=== PATIENT | female | born 1950 | race Two or more races ===

== ENCOUNTER 2020-03-29 07:57 | Emergency (ER) | payer MEDICARE, OTHER ==
[2020-03-29 10:11] LABS: ABSOLUTE EOSINOPHILS # (AUTO) 0.2 10^3/uL (0.0-0.6); ABSOLUTE LYMPHOCYTES (AUTO) 1.5 10^3/uL (0.5-4.7); ABSOLUTE MONOCYTES (AUTO) 0.5 10^3/uL (0.1-1.4); ABSOLUTE NEUT (AUTO) 4.3 10^3/uL (1.7-8.2); BASOPHILS % (AUTO) 0.7 % (0-2); EOSINOPHILS % (AUTO) 2.4 % (0-6); HEMATOCRIT 42.8 % (36.0-47.0); HEMOGLOBIN 14.7 g/dL (12.0-15.5); LYMPHOCYTES % (AUTO) 23.7 % (13-45); MEAN CORPUSCULAR HEMOGLOBIN 32.5 pg (27.0-33.4); MEAN CORPUSCULAR HGB CONC 34.4 g/dL (32.0-36.0); MEAN CORPUSCULAR VOLUME 94 fl (80-97); MONOCYTES % (AUTO) 7.5 % (3-13); PLATELET COUNT 224 10^3/uL (150-450); RED BLOOD COUNT 4.53 10^6/uL (3.72-5.28); RED CELL DISTRIBUTION WIDTH 12.6 % (11.5-14.0); SEGMENTED NEUTROPHILS % (AUTO) 65.7 % (42-78); TOTAL CELLS COUNTED % (AUTO) 100 %; WHITE BLOOD COUNT 6.5 10^3/uL (4.0-10.5)
[2020-03-29 10:23] LABS: APPEARANCE,URINE SLIGHTLY-CLOUDY; BILIRUBIN,URINE NEGATIVE (NEGATIVE); COLOR,URINE YELLOW; GLUCOSE, URINE NEGATIVE (NEGATIVE); KETONES,URINE NEGATIVE (NEGATIVE); LEUKOCYTE ESTERASE,URINE MODERATE (NEGATIVE); NITRITE,URINE NEGATIVE (NEGATIVE); PROTEIN,URINE NEGATIVE (NEGATIVE); URINE SPECIFIC GRAVITY 1.024; UROBILINOGEN,URINE NEGATIVE mg/dL (<2.0)
--- NOTE | 2020-03-29 10:23 | RADIOLOGY REPORT (SQ) ---
EXAM DESCRIPTION: CT HEAD WITHOUT IMAGES COMPLETED DATE/TIME: 03/29/2020 10:11 am REASON FOR STUDY: right sided headache/dizziness/vertigo COMPARISON: None. TECHNIQUE: Axial images acquired through the brain without intravenous contrast. Images reviewed wi th bone, brain and subdural windows. Additional sagittal and coronal reconstructions were generated. Images stored on PACS. All CT scanners at this facility use dose modulation, iterative reconstruction, and/or weight based d osing when appropriate to reduce radiation dose to as low as reasonably achievable (ALARA). [facility]: Dose Right [facility]: CareDose [facility]: Dose Right [facility]: Teradose 4D [facility]: sabio labs RADIATION DOSE: CT Rad equipment meets quality standard of care and radiation dose reduction techniq ues were employed. CTDIvol: 53.2 mGy. DLP: 911 mGy-cm. LIMITATIONS: None. FINDINGS: There is no acute intracranial hemorrhage, vascular territorial infarct, extra-axial fluid collection, mass effect or midline shift. The heredia-white matter differentiation is preserved. The caliber of the ventricles is concordant with the degree of sulcation. There is no effacement of the cerebral sulci or basal subarachnoid cisterns. The orbits and globes are intact. The paranasal sinuses are clear. There is no fracture of the calv arium. IMPRESSION: No acute intracranial abnormality. EVIDENCE OF ACUTE STROKE: NO. COMMENT: Quality ID # [id number]: Final reports with documentation of one or more dose reduction techniques (e.g., Automated exposure control, adjustment of the mA and/or kV according to patient size, use of iterative reconstruction technique) TECHNICAL DOCUMENTATION: JOB ID: [id number] 2010 [employer]- All Rights Reserved Reading location - IP/workstation name: [facility]-
[2020-03-29 10:38] LABS: INTERNATIONAL RATION (INR) 0.85; PROTHROMBIN TIME 11.8 SEC (11.4-15.4)
[2020-03-29 10:39] LABS: PARTIAL THROMBOPLASTIN TIME 26.9 SEC (23.5-35.8)
[2020-03-29 10:40] LABS: ALBUMIN 4.1 g/dL (3.5-5.0); ALKALINE PHOSPHATASE 64 U/L (38-126); ANION GAP 8 (5-19); ASPARTATE AMINO TRANSFERASE 23 U/L (14-36); BILIRUBIN,DIRECT 0.2 mg/dL (0.0-0.4); BILIRUBIN,TOTAL 0.5 mg/dL (0.2-1.3); BLOOD UREA NITROGEN 17 mg/dL (7-20); CALCIUM 9.4 mg/dL (8.4-10.2); CARBON DIOXIDE 24 mmol/L (22-30); CHLORIDE 107 mmol/L (98-107); CREATINE KINASE 76 U/L (30-135); GLUCOSE 146 mg/dL (75-110); POTASSIUM 4.8 mmol/L (3.6-5.0); TOTAL PROTEIN 6.7 g/dL (6.3-8.2)
[2020-03-29 10:51] LABS: CREATINE KINASE MB 1.76 ng/mL (<4.55)
[2020-03-29 10:53] LABS: TROPONIN I < 0.012 ng/mL
[2020-03-29] MEDS ORDERED: KETOROLAC TROMETHAMINE INJ/PF 30 MG/1 ML SDV IV ONE (11:03)
[2020-03-29] MEDS ORDERED: METOCLOPRAMIDE HCL INJ/PF 10 MG/2 ML SDV IV ONE (11:04)
[2020-03-29] MEDS ORDERED: MECLIZINE HCL 25 MG TABLET PO ONE (11:04)
--- NOTE | 2020-03-29 13:30 | ER Document Report ---
Entered by MARIANA MILLER SCRIBE 03/29/20 0956 Acting as scribe for:AISSATOU PERSON MD ED General - General Chief Complaint: Dizziness Stated Complaint: LIGHTHEADED,FACIAL NUMBNESS,NAUSEA Time Seen by Provider: 03/29/20 09:49 Information source: Patient Notes: This 70 year old female patient presents to the emergency department today with dizziness that began this morning after waking up, around 7 am. Patient states she was fine last night and reports some facial numbness over her right eye. Patient states she is able to ambulate by herself and reports some ear pain. - Related Data Allergies/Adverse Reactions: codeine Allergy (Verified 03/29/20 08:11) oxycodone [From Percocet] Allergy (Verified 03/29/20 08:11) propoxyphene [From Darvocet-N] Allergy (Verified 03/29/20 09:58) Past Medical History - General Information source: Patient - Social History Smoking Status: Never Smoker Cigarette use (# per day): No Lives with: Family Family History: Reviewed & Not Pertinent - Past Medical History Cardiac Medical History: Reports: Hx Hypercholesterolemia, Hx Hypertension Past Surgical History: Reports: Hx Tubal Ligation Review of Systems - Review of Systems Constitutional: No symptoms reported EENT: See HPI, Eye pain Cardiovascular: See HPI, Dizziness Respiratory: No symptoms reported Gastrointestinal: No symptoms reported Genitourinary: No symptoms reported Female Genitourinary: No symptoms reported Musculoskeletal: No symptoms reported Skin: No symptoms reported Hematologic/Lymphatic: No symptoms reported Neurological/Psychological: See HPI, Numbness - R facial -: Yes All other systems reviewed and negative Physical Exam - Vital signs Vitals: Temp Pulse Resp BP Pulse Ox 97.6 F 58 L 18 173/100 H 98 03/29/20 08:04 03/29/20 08:04 03/29/20 08:04 03/29/20 08:04 03/29/20 08:04 - General General appearance: Appears well, Alert - HEENT Head: Normocephalic, Atraumatic Eyes: Normal Extraocular movements intact: Yes Pupils: PERRL Ears: Normal External canal: Normal Tympanic membrane: Serous effusion - bilateral Mucous membranes: Normal Notes: Tenderness with palpation to the right frontal sinus. - Respiratory Respiratory status: No respiratory distress Chest status: Nontender Breath sounds: Normal Chest palpation: Normal - Cardiovascular Rhythm: Regular Heart sounds: Normal auscultation Murmur: No - Abdominal Inspection: Normal Distension: No distension Bowel sounds: Normal Tenderness: Nontender - Extremities General upper extremity: Normal inspection, Normal ROM. No: Edema General lower extremity: Normal inspection, Normal ROM. 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 No pronator drift. Normal strength and coordination of all four extremities. - Psychological Associated symptoms: Normal affect, Normal mood - Skin Skin Temperature: Warm Skin Moisture: Dry Skin Color: Normal Course - Re-evaluation Re-evalutation: 03/29/20 13:20 Patient resting comfortably not showing any signs of distress states that her dizziness vertigo headache is all improved. Also nausea is improved. Patient denies any chest pain. - Vital Signs Vital signs: Temp Pulse Resp BP Pulse Ox 97.6 F 57 L 14 171/87 H 99 03/29/20 08:04 03/29/20 09:52 03/29/20 09:52 03/29/20 09:52 03/29/20 09:52 03/29/20 13:20 Vital signs show systolic hypertension at 952 this a.m. Patient's blood pressure now is 140/80. - Laboratory Result Diagrams: 03/29/20 09:45 03/29/20 09:45 Laboratory results interpreted by me: 03/29/20 03/29/20 09:40 09:45 Glucose 146 H Ur Leukocyte Esterase MODERATE H Laboratories show blood sugar 146 and urine shows leukocyte esterase positive moderate. Patient denies any urinary symptoms we will culture urine to determine if patient does have a urinary tract infection that is subclinical to to her at this time. - Diagnostic Test Radiology reviewed: Image reviewed, Reports reviewed Radiology results interpreted by me: 03/29/20 13:[address] 03/29/20 09:55 IMPRESSION: No acute intracranial abnormality. EVIDENCE OF ACUTE STROKE: NO. CT scan of head shows no evidence of stroke. - EKG Interpretation by Me Additional EKG results interpreted by me: 03/29/20 13:23 Twelve-lead EKG shows normal sinus rhythm rate of [address]-T wave changes. No evidence for DC. QT QRS and NM intervals all within normal range normal axis. T wave inversion in lead III only. Discharge - Discharge Clinical Impression: Labyrinthitis of both ears, Nausea, Tenderness over frontal sinus Condition: Stable Disposition: HOME, SELF-CARE Instructions: Labyrinthitis ([facility]), Dizziness ([facility]), Meclizine ([facility]) Additional Instructions: Labyrinthitis Labyrinthitis is a temporary disease of the inner ear. It's sometimes called vestibulitis. It often starts a few days after a cold or virus infecti on. Symptoms include vertigo (the spinning type of dizziness) or a sense of unsteadiness and nausea. The symptoms usually go away in a couple of days without any treatment. You should rest and keep your head still. The dizziness is worse if you move your head. Closing the eyes usually helps. Don't drive, work with dangerous machinery, or get up on ladders or scaffolds until a few days after the dizziness resolves. Medicine such as meclizine (Antivert, Bonine) can reduce the dizziness and nausea. Tranquilizers (such as diazepam) can suppress your sense of balance, reducing the unpleasantness of the vertigo. Call or return if you develop ear pain, loss of hearing, fever, severe vomiting, or any other new symptom. Recommend Tylenol or Advil Cold and Sinus as needed for sinus headache pain. Prescriptions: Meclizine HCl [Antivert 25 mg Tablet] 25 mg PO TID PRN #21 tablet PRN Reason: Ondansetron [Zofran Odt 4 mg Tablet] 1 - 2 tab PO Q4H PRN #15 tab.rapdis PRN Reason: For Nausea/Vomiting I personally performed the services described in the documentation, reviewed and edited the documentation which was dictated to the scribe in my presence, and it accurately records my words and actions.
[2020-03-29 14:14] VITALS: BP 130/80
--- NOTE | 2020-03-29 21:04 | EKG REPORT ---
SEVERITY:- NORMAL ECG - SINUS RHYTHM : Confirmed by: Sabra Harman 29-Mar-2020 21:03:42
== END 2020-03-29 14:15 | disposition home or self-care (01) ==
LOC: ER 07:57
DX: H83.03 Labyrinthitis, bilateral (principal); R51 Headache; R11.0 Nausea; R42 Dizziness and giddiness; R20.0 Anesthesia of skin; Z88.8 Allergy status to other drugs, medicaments and biological substances; I10 Essential (primary) hypertension
CPT/HCPCS: 93005; 99285; 96374; 96375; 36415; 82553; 82550; 85025; 85610; 85730; 80053; 81001; 84484; 70450; 93010; A9270; J1885; J2765